=== PATIENT | male | born 1940 | race Caucasian/White ===

== ENCOUNTER 2018-02-19 21:47 | Observation (INO) | payer OTHER ==
[~2018-02-19] VITALS: Ht 182.9 cm; Wt 89.7 kg
[2018-02-19] MEDS ORDERED: AMLO10 PO (22:24)
[2018-02-19] MEDS ORDERED: Aspirin EC81 MG PO (22:25)
[2018-02-19] MEDS ORDERED: BUSP10 PO (22:25)
[2018-02-19] MEDS ORDERED: LUBRICANT EYE15 ML BOTHEYES (22:27)
[2018-02-19] MEDS ORDERED: CLOP75 PO (22:28)
[2018-02-19] MEDS ORDERED: Clotrimazole15 GM TOP (22:30)
[2018-02-19] MEDS ORDERED: GENTEAL TEARS 015 ML BOTHEYES (22:31)
[2018-02-19] MEDS ORDERED: Fluoxetine HCl10 MG PO (22:32)
[2018-02-19] MEDS ORDERED: HYDPAM25 PO (22:32)
[2018-02-19] MEDS ORDERED: Zestril40 MG PO (22:33)
[2018-02-19] MEDS ORDERED: METO50 PO (22:34)
[2018-02-19] MEDS ORDERED: Omeprazole20 M1 PO (22:35)
[2018-02-19] MEDS ORDERED: Hair, Skin & N1 EACH PO (22:35)
[2018-02-19] MEDS ORDERED: PRAZ2 PO (22:36)
[2018-02-19] MEDS ORDERED: SILDENAFIL CIT100 MG PO (22:40)
[2018-02-19] MEDS ORDERED: Simvastatin40 MG PO (22:40)
[2018-02-19] MEDS ORDERED: TRIA15CR3 TOP (22:41)
[2018-02-19 23:20] LABS: BASOPHILS ABSOLUTE AUTO 0.05 K/mm3 (0.00-0.23); BASOPHILS PERCENT AUTO 0 % (0-2); EOSINOPHILS ABSOLUTE AUTO 0.11 K/mm3 (0.00-0.68); EOSINOPHILS PERCENT AUTO 1 % (0-6); Hematocrit 28.4 % (37.0-53.0); Hemoglobin 9.3 g/dL (13.5-17.5); IMMATURE GRAN ABSOLUTE AUTO 0.07 K/mm3 (0.00-0.10); IMMATURE GRAN PERCENT AUTO 0 % (0-1); LYMPHOCYTES ABSOLUTE AUTO 1.87 K/mm3 (0.84-5.20); LYMPHOCYTES PERCENT AUTO 12 % (21-46); MONOCYTES ABSOLUTE AUTO 0.93 K/mm3 (0.16-1.47); MONOCYTES PERCENT AUTO 6 % (4-13); Mean Corpuscular HGB 28.6 pg (26.0-34.0); Mean Corpuscular HGB Conc 32.7 g/dL (31.5-36.5); Mean Corpuscular Volume 87 fL (80-100); Mean Platelet Volume 9.2 fL (9.1-12.4); NEUTROPHILS ABSOLUTE AUTO 12.97 K/mm3 (1.96-9.15); NEUTROPHILS PERCENT AUTO 81 % (41-73); Platelet Count 279 K/mm3 (150-400); RDW Coefficient Variation 13.6 % (11.7-14.2); RDW Standard Deviation 43.8 fL (35.1-46.3); Red Blood Cell Count 3.25 M/mm3 (4.30-5.90)
[2018-02-19 23:32] LABS: Anion Gap 8 mmol/L (6-16); Blood Urea Nitrogen 21 mg/dL (8-24); CO2, Blood 25 mmol/L (21-32); Calcium, Blood 8.5 mg/dL (8.5-10.1); Chloride, Blood 100 mmol/L (98-108); Creatinine, Blood 1.31 mg/dL (0.60-1.20); Glomerular Filtration Rate 56 (60-); Glucose, Blood 132 mg/dL (70-99); Potassium, Blood 3.9 mmol/L (3.5-5.5); Sodium, Blood 133 mmol/L (136-145)
[2018-02-19 23:34] LABS: International Normalized Ratio 1.13; Prothrombin Time Results 11.6 Sec (9.7-11.5)
[2018-02-20] MEDS ORDERED: Thera Tears1 EACH BOTHEYES (00:14)
[2018-02-20] MEDS ORDERED: CLOTRIMAZOLE TOP (00:15)
[2018-02-20] MEDS ORDERED: Viagra100 MG PO (00:16)
[2018-02-20] MEDS ORDERED: TRIA15CR3 TOP (00:17)
[2018-02-20 00:38] LABS: Troponin I <0.015 ng/mL (0.000-0.040)
[2018-02-20 04:45] LABS: Hemoglobin 9.5 g/dL (13.5-17.5); Mean Corpuscular HGB Conc 32.8 g/dL (31.5-36.5); Mean Corpuscular Volume 86 fL (80-100); Platelet Count 269 K/mm3 (150-400); RDW Coefficient Variation 13.7 % (11.7-14.2); RDW Standard Deviation 42.6 fL (35.1-46.3); Red Blood Cell Count 3.39 M/mm3 (4.30-5.90); White Blood Cell Count 17.19 K/mm3 (4.00-11.30)
[2018-02-20 05:09] LABS: Bun/Creatinine Ratio 16.8 (12.0-20.0); Calcium, Blood 8.4 mg/dL (8.5-10.1); Creatinine, Blood 1.31 mg/dL (0.60-1.20); Potassium, Blood 4.2 mmol/L (3.5-5.5)
[2018-02-20 05:12] LABS: Thyroid Stimulating Hormone 1.79 uIU/mL (0.360-4.800)
[2018-02-20 07:28] LABS: Source, Urine Clean Catch
[2018-02-20 07:32] LABS: Bilirubin, Urine Neg (Neg); Blood, Urine 1+ (Neg); Glucose Qualitative, Urine Neg (Neg); Ketones, Urine Neg (Neg); Leukocyte Esterase, Urine Neg (Neg); Nitrite, Urine Neg (Neg); Protein, Urine Neg (Neg); Urobilinogen, Urine NORM (Normal)
[2018-02-20 07:57] LABS: Appearance, Urine Clear (Clear); Bacteria Not Seen /hpf; Color, Urine Pale Yellow (P-Yellow); Red Blood Cells, Urine 0-2 /hpf (0-2); Squamous Epithelial Cells Not Seen /hpf (Few); White Blood Cells, Urine Not Seen /hpf (0-5)
[2018-02-21 05:00] LABS: International Normalized Ratio 1.2; Prothrombin Time Results 12.2 Sec (9.7-11.5)
[2018-02-21] MEDS ORDERED: ENOX100I SC (09:28)
[2018-02-21] MEDS ORDERED: WARF5 PO (09:33)
== END 2018-02-21 10:27 | disposition home or self-care (01) ==
LOC: ER 21:47 → MEDS 21:48 → ENPENDDIS 02-21 08:53 → MEDS 02-21 10:27
PROVIDERS: Emergency Medicine; Internal Medicine
DX: I26.99 Other pulmonary embolism without acute cor pulmonale (principal); D72.829 Elevated white blood cell count, unspecified; F43.10 Post-traumatic stress disorder, unspecified; N40.0 Benign prostatic hyperplasia without lower urinary tract symptoms; K21.9 Gastro-esophageal reflux disease without esophagitis; K22.2 Esophageal obstruction; E78.5 Hyperlipidemia, unspecified; I10 Essential (primary) hypertension; I25.10 Atherosclerotic heart disease of native coronary artery without angina pectoris; Z95.5 Presence of coronary angioplasty implant and graft; Z88.8 Allergy status to other drugs, medicaments and biological substances; Z79.02 Long term (current) use of antithrombotics/antiplatelets; Z79.82 Long term (current) use of aspirin; Z79.899 Other long term (current) drug therapy; Z87.891 Personal history of nicotine dependence; Z51.81 Encounter for therapeutic drug level monitoring
CPT/HCPCS: 36415; 80048; 81001; 81240; 81241; 81291; 83880; 84443; 84484; 85025; 85027; 85610; 85730; 93306; 93970; 96372; 99285; G0378; J1650